=== PATIENT | female | born 1960 | race Caucasian/White ===

== ENCOUNTER 2018-12-30 16:37 | Observation (INO) ==
--- NOTE | 2018-12-30 16:44 | Emergency Department Note ---
Disposition Clinical Impression: Chest pain Disposition: Admitted As Inpatient Condition: Fair Time of Disposition: 18:16 Chest Pain HPI - General Chief Complaint: ED Chest Pain Stated Complaint: chest pain Time Seen by Provider: 12/30/18 16:43 Source: patient, family Mode of arrival: ambulatory Limitations: no limitations Vital Signs Reviewed: Yes Nursing Notes Reviewed: Yes - History of Present Illness HPI Narrative: 58-year-old female past medical history of hypertension, thyroid disease, former smoker, stage III emphysema following currently with [facility] presenting for one day of 8 out of 10 substernal chest tightness radiating to her back. Patient states that she has had some shortness of breath with this but states that is no different than her normal emphysema. The patient has no other concerns or complaints at this time however she states that her father had a heart attack in his mid 50s near her current age. Patient has no other concerns or complaints at this time. Upon my initial evaluation, my general impression is that the patient is awake, alert, oriented, engaged to conversation and answering questions appropriately. There are no overt lateralizing signs, the patient is in no acute distress; their skin appears to be normal in color, they are not pale, not cyanotic, and not diaphoretic, they are sitting up in hospital bed interacting appropriately with environment. Pt complaint: chest pain Onset (ago): day(s) Duration: constant Onset: during rest Severity: severe Severity scale (1-10): 8 Quality: tightness, heaviness Pain Radiation: back - Related Data Home Medications Medication Instructions Recorded Confirmed Omeprazole [PriLOSEC] 20 mg PO DAILY 11/23/15 12/30/18 Albuterol Sulfate [Ventolin Hfa] 2 puff IH Q6H PRN 12/30/18 12/30/18 Cyanocobalamin/Folic Acid [B-12 1 tab SL DAILY 12/30/18 12/30/18 1,000 Mcg Sub Tablet] FLUoxetine HCl [Sarafem] 20 mg PO DAILY 12/30/18 12/30/18 Levothyroxine [Synthroid] 88 mcg PO 0630 12/30/18 12/30/18 Montelukast [Singulair] 10 mg PO DAILY 12/30/18 12/30/18 Multivitamin [Daily Multiple 1 tab PO DAILY 12/30/18 12/30/18 Vitamin] Olmesartan/Hydrochlorothiazide 1 tab PO DAILY 12/30/18 12/30/18 [Olmesartan-Hctz 20-12.5 mg Tab] Allergies Allergy/AdvReac Type Severity Reaction Status Date / Time budesonide [From Symbicort] AdvReac Dizziness Verified 12/30/18 18:40 Formoterol [From Symbicort] AdvReac Dizziness Verified 12/30/18 18:40 hydrocodone [From Vicodin] AdvReac Vomiting Verified 11/23/15 08:04 hydromorphone [From Dilaudid] AdvReac Vomiting Verified 12/30/18 18:01 Review of Systems: *See History of Present Illness for more detail Constitutional: Admits: Chills. Denies: fever Cardiovascular: Admits: chest pain Respiratory: Denies: dyspnea, cough, hemoptysis Gastrointestinal: Denies: abdominal pain, nausea, vomiting, diarrhea, const ipation, hematemesis, melena, hematochezia Genitourinary: Denies: hematuria Musculoskeletal: Denies: back pain, neck pain Neurological: Denies: headache, weakness, lightheadedness/dizziness, numbness, paresthesias, difficulty with ambulation. Endocrine: Denies: fatigue All systems ED: reviewed and negative except as stated. Review of Systems: As Per HPI Chest Pain PMH - Past Medical History Medical history: Reports: GERD, thyroid disease Surgical history: Reports: appendectomy, cholecystectomy, hysterectomy Psychiatric history: Reports: anxiety, depression - Social History Smoking Status: Former smoker Alcohol use: Reports: none Drug use: Reports: none Physical Exam Constitutional: No acute distress, [id number], engaged to conversation, speech is fluid, answers questions appropriately Neuro: GCS 15, no overt focal neurological deficits Head: Atraumatic, normocephalic Eyes: Pupils equal, round and reactive to light, no scleral icterus, no conjunctival injection Neck: Trachea midline without deviation. Anterior neck is supple without swelling. *Chest: Symmetric chest wall rise *Heart: Cardiac rhythm and rate are regular with S1 and S2 , no S3 or S4 appreciated, no murmurs, gallops, rubs, or clicks. *Lungs: Lungs are clear to auscultation bilaterally, without accessory muscle use or prolonged expiratory phase. No wheezes, rhonchi or stridor appreciated. Abdomen: Abdomen is flat, soft to palpation, normal bowel sounds. No abdominal bruit auscultated. Non-distended, non-rigid, no organomegaly, no ascites appreciated. No pulsatile mass, no tenderness or guarding to palpation in all four quadrants, no rebound Extremities: Normal capillary refill without evidence of pedal edema, joint swelling or erythema. Pulses/motor intact in all 4 extremities. Psychiatric exam: Patient displays a normal affect and mood for the environment. No overt signs of hallucination. Integumentary: warm, dry, intact, normal color. No rash, cyanosis, diaphoresis, erythema, or pallor - General Limitations: no limitations General appearance: alert, in no apparent distress Course Vital Signs Temperature 98.0 F 12/30/18 16:37 Pulse Rate 88 12/30/18 16:37 Respiratory Rate 16 12/30/18 16:37 Blood Pressure 158/86 12/30/18 16:37 O2 Sat by Pulse Oximetry 98 12/30/18 16:37 Temperature 98.0 F 12/30/18 16:43 Pulse Rate 86 12/30/18 18:14 Respiratory Rate 16 12/30/18 18:14 Blood Pressure 125/87 12/30/18 18:14 O2 Sat by Pulse Oximetry 97 12/30/18 18:14 Oxygen Delivery Oxygen Delivery Room Air Chest Pain - MDM Narrative Medical decision making narrative: The patients EKG, imaging, and laboratory results show no acute pathology . Ev aluation results were discussed with the patient and their family member(s) at bedside. Patient was given time to ask questions and state concerns. The patient states that they have had significant relief of their symptoms with our management here in the ED. The patient will be admitted to the hospitalist medicine service for further evaluation and management of chest pain for ACS rule out . The patient verbalizes their understanding and agreement with this plan and is hemodynamically stable at the time of admission. - Lab Data Lab results reviewed: Yes I reviewed the patient's lab results. Result diagrams: 12/31/18 00:33 12/31/18 00:33 Lab Results 12/30/18 12/30/18 12/30/18 Range/Units 16:48 16:48 16:48 WBC 6.7 (4.3-11.1) K/mcL RBC 4.20 (3.82-4.97) M/mcL Hgb 12.9 (11.5-15.4) g/dL Hct 38.9 (35.3-44.9) % MCV 92.6 (83.0-100.0) fL MCH 30.7 (28.0-33.3) pg MCHC 33.2 (31.6-35.5) g/dL RDW 12.7 (11.5-14.5) % Plt Count 235 (140-400) K/mcL MPV 9.9 (9.4-12.4) fL Immature Gran % 0.3 (0-4) % Seg Neutrophils % 57.3 % Lymphocytes % 29.5 % Monocytes % 9.9 % Eosinophils % 2.1 % Basophils % 0.9 % Neutrophils # 3.8 (1.6-8.9) K/mcL Lymphocytes # 2.0 (0.6-4.6) K/mcL Monocytes # 0.7 (0.0-1.3) K/mcL Eosinophils # 0.1 (0.0-0.6) K/mcL Basophils # 0.1 (0.0-0.2) K/mcL Sodium 138 (136-145) mEq/L Potassium 3.7 (3.5-5.1) mEq/L Chloride 103 (98-107) mEq/L Carbon Dioxide 23 (23-29) mEq/L BUN 15 (6-20) mg/dL Creatinine 0.70 (0.60-1.20) mg/dL Est GFR ( Amer) > 60 (> 60) Est GFR (Non-Af Amer) > 60 (> 60) BUN/Creatinine Ratio 21 (6-26) Glucose 118 H (70-105) mg/dL Calculated Osmolality 288 (280-300) Calcium 9.1 (8.6-10.3) mg/dL Troponin I < 0.03 (< 0.04) ng/mL B-Natriuretic Peptide 41 (Less than 100) pg/mL Procalcitonin (0.00-0.15) ng/mL TSH 0.763 (0.340-5.600) mcIU/mL 12/30/18 Range/Units 16:48 WBC (4.3-11.1) K/mcL RBC (3.82-4.97) M/mcL Hgb (11.5-15.4) g/dL Hct (35.3-44.9) % MCV (83.0-100.0) fL MCH (28.0-33.3) pg MCHC (31.6-35.5) g/dL RDW (11.5-14.5) % Plt Count (140-400) K/mcL MPV (9.4-12.4) fL Immature Gran % (0-4) % Seg Neutrophils % % Lymphocytes % % Monocytes % % Eosinophils % % Basophils % % Neutrophils # (1.6-8.9) K/mcL Lymphocytes # (0.6-4.6) K/mcL Monocytes # (0.0-1.3) K/mcL Eosinophils # (0.0-0.6) K/mcL Basophils # (0.0-0.2) K/mcL Sodium (136-145) mEq/L Potassium (3.5-5.1) mEq/L Chloride (98-107) mEq/L Carbon Dioxide (23-29) mEq/L BUN (6-20) mg/dL Creatinine (0.60-1.20) mg/dL Est GFR ( Amer) (> 60) Est GFR (Non-Af Amer) (> 60) BUN/Creatinine Ratio (6-26) Glucose (70-105) mg/dL Calculated Osmolality (280-300) Calcium (8.6-10.3) mg/dL Troponin I (< 0.04) ng/mL B-Natriuretic Peptide (Less than 100) pg/mL Procalcitonin < 0.02 (0.00-0.15) ng/mL TSH (0.340-5.600) mcIU/mL - Radiology Data Radiology results reviewed: Yes I reviewed the patient's radiology results. Chest X-Ray 12/30/18 16:48 IMPRESSION: No acute abnormality. D/ / 12/30/2018 17:05:49 Kostas Chavez MD / david Interpreting Provider: Kostas Chavez MD - EKG Data EKG attestation: Yes I reviewed and interpreted this EKG. EKG results narrative: The patients EKG shows a sinus rhythm at a computer analyzed rate of 84 beats per minute, AL interval of 147 milliseconds, a QRS duration of 94 milliseconds, a QT/QTc interval of 382 / 452 milliseconds respectively. There are no s ignificant ST segment elevations, depressions, pathologic Q waves, abnormal T- wave inversions, nor any other signs of acute ischemic change. This EKG that was performed today is generally consistent in morphology with prior EKG that was performed on 02/18/2010. Heart Score - Score History: Moderately Suspicious EKG: Normal Age: 45-65 Risk Factors: Equal/Greater than 3 risk factor or history of atherosclerotic disease Troponin: Less than normal limit HEART Score Total: 4 Attestation Statement - Attestation Attestation: I, Mendoza Felix, examined this patient and my medical decision-making was reviewed with the PROCESS SUPERVISOR/PA/Advanced Practice Nurse/Resident Physician. I agree with the documented findings, disposition and treatment plan as described except to the extent set forth below. 58-year-old female presents emergency Department with concerns of substernal chest pain. Patient states the pain is an aching but does radiate to her back. No history of aortic dissection. Patient has a history of previous cardiac disease. She also is followed for emphysema. Patient is a prior smoker and has a history of hypertension. Patient is awake alert and answering questions appropriately emergency department. Initial troponin was negative. EKG did not show evidence of STEMI.I reviewed the EKG with the resident and agree with the interpretation. Chest x-ray did not show widened mediastinum. Blood pressures are equal and within normal limits bilaterally. I think it is less likely to be aortic dissection. Patient will be admitted to the hospitalist for further care and evaluation of acute chest pain rule out ACS.
[2018-12-30] MEDS ORDERED: Aspirin 81 MG TAB.CHEW PO STA (17:01)
[2018-12-30 17:03] LABS: Basophils # 0.1 K/mcL (0.0-0.2); Basophils % 0.9 %; Eosinophils # 0.1 K/mcL (0.0-0.6); Eosinophils % 2.1 %; Hematocrit 38.9 % (35.3-44.9); Hemoglobin 12.9 g/dL (11.5-15.4); Immature Granulocytes % 0.3 % (0-4); Lymphocytes % 29.5 %; Mean Corpuscular HGB Conc 33.2 g/dL (31.6-35.5); Mean Corpuscular Hemoglobin 30.7 pg (28.0-33.3); Mean Corpuscular Volume 92.6 fL (83.0-100.0); Mean Platelet Volume 9.9 fL (9.4-12.4); Monocytes # 0.7 K/mcL (0.0-1.3); Monocytes % 9.9 %; Neutrophils # 3.8 K/mcL (1.6-8.9); Platelet Count 235 K/mcL (140-400); Red Cell Distribution Width 12.7 % (11.5-14.5); Segmented Neutrophils % 57.3 %; White Blood Count 6.7 K/mcL (4.3-11.1)
[2018-12-30] MEDS: Nitroglycerin 0.4 MG TAB.SUBL SL PRN ×3 (17:59→21:27)
[2018-12-30 18:00] LABS: Troponin I < 0.03 ng/mL (< 0.04)
[2018-12-30] MEDS ORDERED: GI Cocktail 40 ML EACH PO ONE (18:02)
[2018-12-30 18:12] LABS: BUN/Creatinine Ratio 21 (6-26); Blood Urea Nitrogen 15 mg/dL (6-20); Calcium 9.1 mg/dL (8.6-10.3); Carbon Dioxide 23 mEq/L (23-29); Chloride 103 mEq/L (98-107); Glucose 118 mg/dL (70-105); Osmolality,Calculated 288 (280-300); Potassium 3.7 mEq/L (3.5-5.1); Sodium 138 mEq/L (136-145); eGFR For African Americans > 60 (> 60); eGFR For Non-African Americans > 60 (> 60)
[2018-12-30] MEDS ORDERED: MOM Conc 10 ML UD.LIQ PO PRN (18:23)
[2018-12-30] MEDS ORDERED: Acetaminophen 325 MG TABLET PO PRN (18:23)
[2018-12-30] MEDS ORDERED: Naloxone 0.4 MG/ML INJ IVP PRN (18:23)
[2018-12-30] MEDS ORDERED: Mag Hydrox/Al Hydrox/Simeth 30 ML UDC PO PRN (18:23)
[2018-12-30] MEDS ORDERED: Ondansetron 4 MG/2 ML VIAL IVP PRN (18:23)
[2018-12-30] MEDS ORDERED: Ipratropium/Albuterol Neb 3 ML IH PRN (18:29)
--- NOTE | 2018-12-30 18:33 | Internal Med History&Physical ---
Date of Encounter: 12/30/18 Time of Encounter: 18:20 Internal Medicine - H&P: HPI Chief complaint: chest pain Admitted From: Emergency Dept Plans for Post Hospital Care: Home History of present illness: Ms. Kimbrough is a 58 year old female with hx of HTN and emphysema presented to ED with L side chest pain. She is being placed in observation. Ms Kimbrough has been feeling L side chest pain intermittently over the last couple of days per her . It was resolving spontaneously. This AM the pain returned and has not resolved. She was able to go to the store and walk around but the pain persisted. No diaphoresis. No dyspnea. Some coughing earlier today. Some discomfort in back. No pleuritic pain. At this time she has received nitroglycerin and pain is being to resolve. Past Med Surg Social Fam HX - Past Medical History Medical history: asthma, GERD, thyroid disease Additional medical history: bowel irregularity Psychiatric history: anxiety, depression - Past Surgical History Surgical History: appendectomy, cholecystectomy, hysterectomy - Social History Smoking Status: Former smoker Smokeless Tobacco Status: Yes Alcohol use: occasionally Drug use: none - Family History Father Hx Family Cardiac Disorders: Yes (heart disease) Internal Medicine - H&P: Meds Omeprazole [PriLOSEC] 20 mg PO DAILY 11/23/15 [History] Albuterol Sulfate [Ventolin Hfa] 2 puff IH Q6H PRN 12/30/18 [History] Cyanocobalamin/Folic Acid [B-12 1,000 Mcg Sub Tablet] 1 tab SL DAILY 12/30/18 [History] FLUoxetine HCl [Sarafem] 20 mg PO DAILY 12/30/18 [History] Levothyroxine [Synthroid] 88 mcg PO 0630 12/30/18 [History] Montelukast [Singulair] 10 mg PO DAILY 12/30/18 [History] Multivitamin [Daily Multiple Vitamin] 1 tab PO DAILY 12/30/18 [History] Olmesartan/Hydrochlorothiazide [Olmesartan-Hctz 20-12.5 mg Tab] 1 tab PO DAILY 12/30/18 [History] Allergy/AdvReac Type Severity Reaction Status Date / Time hydrocodone [From Vicodin] AdvReac Vomiting Verified 11/23/15 08:04 hydromorphone [From Dilaudid] AdvReac Vomiting Verified 12/30/18 18:01 All Systems PM: A 10-system review of systems was performed and is negative for pertinent findings except as documented above in the HPI. - Constitutional Constitutional: no fatigue, no malaise - EENT Eyes: no change in vision, no loss of vision Ears: no decreased hearing Nose, mouth and throat: no dry mouth, no mouth pain, no sinus pain - Cardiovascular Cardiovascular ROS IM: chest pain, no diaphoresis, no dyspnea, no orthopnea, no palpitations, no paroxysmal nocturnal dyspnea - Respiratory Respiratory: cough, no wheezing - Gastrointestinal Gastrointestinal: no abdominal pain, no diarrhea, no nausea, no vomiting - Genitourinary Genitourinary: no difficulty urinating, no urinary frequency - Musculoskeletal Musculoskeletal ROS IM: no arthralgias - Integumentary Integumentary IM: no non-healing lesions - Neurological Neurological ROS: no confusion, no numbness - Endocrine Endocrine IM: no excessive sweating - Hematologic/Lymphatic Hematologic/Lymphatic: no easy bleeding - Allergic/Immunologic Allergic/Immunologic: no seasonal rhinorrhea - Constitutional Vitals: Temp Pulse Resp BP Pulse Ox 98.0 F 86 16 125/87 97 12/30/18 16:43 12/30/18 18:14 12/30/18 18:14 12/30/18 18:14 12/30/18 18:14 General appearance: Present: A&O X 3, pleasant, answers questions appropriately Exam: See below - Head Head exam: Present: atraumatic, normocephalic - Eye Eye exam: Present: conjuntiva pink - ENT ENT exam: Present: normal exam - Neck Neck exam general surgery: Present: normal inspection, supple. Absent: nuchal rigidity - Respiratory Respiratory exam: Present: decreased breath sounds. Absent: rales, rhonchi, wheezes Additional comments: increased thoracic kyphosis - Cardiovascular Cardiovascular exam: Present: RRR. Absent: systolic murmur, tachycardia - GI/Abdominal GI/Abdominal exam: Present: normal bowel sounds, soft. Absent: mass, tenderness - Extremities Exam Extremities exam: Present: warm. Absent: tenderness Additional comments: Pulses equal - Neurological Exam Neurological exam: Present: alert, oriented X3, no focal deficits - Skin Skin exam: Present: dry, warm. Absent: rash Internal Med - H&P Results - Labs CBC & Chem 7: 12/30/18 16:48 12/30/18 16:48 Labs: Short CBC 12/30/18 Range/Units 16:48 WBC 6.7 (4.3-11.1) K/mcL Hgb 12.9 (11.5-15.4) g/dL Hct 38.9 (35.3-44.9) % Plt Count 235 (140-400) K/mcL Neutrophils # 3.8 (1.6-8.9) K/mcL BMP 12/30/18 16:48 Sodium 138 Potassium 3.7 Chloride 103 Carbon Dioxide 23 BUN 15 Creatinine 0.70 Glucose 118 H Calcium 9.1 Cardiac Enzymes 12/30/18 Range/Units 16:48 Troponin I < 0.03 (< 0.04) ng/mL - Impressions ITS Impressions Chest X-Ray 12/30/18 16:48 IMPRESSION: No acute abnormality. D/ / 12/30/2018 17:05:49 Kostas Chavez MD / david Interpreting Provider: Kostas Chavez MD - Assessment and Plan (1) Chest pain Status: Suspected Assessment and plan: Pt presented to ED with intermittent chest pain over last couple days increasing today. EKG is normal. Place in observation. Serial troponin. Echo. Stress test in AM. Nitro PRN. ASA. Statin. Qualifiers: Chest pain type: chest pain due to myocardial ischemia Qualified Code(s): I20.0 - Unstable angina (2) Emphysema lung Status: Chronic Assessment and plan: PRN duonebs Qualifiers: Emphysema type: unspecified Qualified Code(s): J43.9 - Emphysema, unspecified (3) Hypertension Status: Chronic Assessment and plan: Continue home meds. Qualifiers: Hypertension type: essential hypertension Qualified Code(s): I10 - Essential (primary) hypertension (4) Hypothyroid Status: Chronic Assessment and plan: Continue home meds. Qualifiers: Hypothyroidism type: acquired Qualified Code(s): E03.9 - Hypothyroidism, unspecified - Time Spent With Patient Total time spent is greater than 50% in coordination of care (as documented) at patient's floor/unit and/or counseling patient:
[2018-12-30 18:47] LABS: Thyroid Stimulating Hormone 0.763 mcIU/mL (0.340-5.600)
[2018-12-30] MEDS ORDERED: traMADol 50 MG TABLET PO ONE (22:00)
[2018-12-31 01:34] LABS: Hematocrit 34.2 % (35.3-44.9); Hemoglobin 11.7 g/dL (11.5-15.4); Mean Corpuscular HGB Conc 34.2 g/dL (31.6-35.5); Mean Corpuscular Hemoglobin 31.5 pg (28.0-33.3); Mean Corpuscular Volume 91.9 fL (83.0-100.0); Mean Platelet Volume 10.1 fL (9.4-12.4); Platelet Count 210 K/mcL (140-400); Red Blood Count 3.72 M/mcL (3.82-4.97); Red Cell Distribution Width 12.8 % (11.5-14.5); White Blood Count 5.9 K/mcL (4.3-11.1)
[2018-12-31 01:41] LABS: Prothrombin Time 10.9 Seconds (9.4-12.1)
[2018-12-31 01:52] LABS: BUN/Creatinine Ratio 25 (6-26); Blood Urea Nitrogen 17 mg/dL (6-20); Calcium 8.9 mg/dL (8.6-10.3); Carbon Dioxide 27 mEq/L (23-29); Chloride 104 mEq/L (98-107); Chol/HDL Ratio 3.5 (0-4.9); Glucose 102 mg/dL (70-105); Magnesium 2.2 mg/dL (1.6-2.6); Osmolality,Calculated 288 (280-300); Potassium 3.4 mEq/L (3.5-5.1); Sodium 138 mEq/L (136-145); eGFR For African Americans > 60 (> 60); eGFR For Non-African Americans > 60 (> 60)
[2018-12-31] MEDS ORDERED: *HR* Heparin 5,000 UNIT/ML VIAL SQ SCH (06:00)
[2018-12-31] MEDS ORDERED: Regadenoson 0.4 MG/5 ML SYRINGE IVP ONE (06:30)
[2018-12-31] MEDS ORDERED: Losartan/HCTZ 50-12.5 TABLET PO SCH (09:00)
[2018-12-31] MEDS ORDERED: FLUoxetine 20 MG CAPSULE PO SCH (09:00)
[2018-12-31] MEDS ORDERED: Aspirin Enteric Coated 81 MG Tablet PO SCH (09:00)
--- NOTE | 2018-12-31 11:26 | Discharge Summary ---
- NOTES TO OUTPATIENT PROVIDER Notes to Outpatient Provider: f/u with PCP in one week. Date of Encounter: 12/31/18 Time of Encounter: 11:17 - Discharge Diagnosis (1) Chest pain Priority: Primary Status: Suspected Qualifiers: Chest pain type: chest pain due to myocardial ischemia Qualified Code(s): I20.0 - Unstable angina (2) Emphysema lung Priority: Secondary Status: Chronic Qualifiers: Emphysema type: unspecified Qualified Code(s): J43.9 - Emphysema, unspecified (3) Hypertension Priority: Secondary Status: Chronic Qualifiers: Hypertension type: essential hypertension Qualified Code(s): I10 - Essential (primary) hypertension (4) Hypothyroid Priority: Secondary Status: Chronic Qualifiers: Hypothyroidism type: acquired Qualified Code(s): E03.9 - Hypothyroidism, unspecified Hospital course: Ms. Kimbrough is a 58 year old female with hx of HTN, recently dx COPD/emphysema and former smoker pt presented to ED with L side chest pain. Pt stated she has been having intermittent CP, located left chest wall, radiating to her left lateral side under the Rt breast and back to scapular region. Initially it felt sharp pain , later she was pressure type pain when she lie down. She denied any SOB. She was admitted in the hospital and placed her on tele. Her serial troponin were negative. She does not have any acute ischemic changes on EKG. Her 2D Echo showed preserved LVEF and mild left ventricular diastolic dysfunction. Her D- Dimer was negative. Since pt is high risk for ACS she did go for nuclear stress test which came back as negative for ischemia/infarction. Will d/c her home in stable condition today. - Time Spent with Patient Total time spent providing and/or coordinating discharge services: - Discharge Medications Prescriptions: New Aspirin Enteric Coated [Aspirin EC] 81 mg PO DAILY #30 tablet. Continued Omeprazole [PriLOSEC] 20 mg PO DAILY Montelukast [Singulair] 10 mg PO DAILY Albuterol Sulfate [Ventolin Hfa] 2 puff IH Q6H PRN PRN Reason: Shortness Of Breath FLUoxetine HCl [Sarafem] 20 mg PO DAILY Olmesartan/Hydrochlorothiazide [Olmesartan-Hctz 20-12.5 mg Tab] 1 tab PO DAILY Cyanocobalamin/Folic Acid [B-12 1,000 Mcg Sub Tablet] 1 tab SL DAILY Levothyroxine [Synthroid] 88 mcg PO 0630 Multivitamin [Daily Multiple Vitamin] 1 tab PO DAILY Home Medications: Omeprazole [PriLOSEC] 20 mg PO DAILY 11/23/15 [History] Albuterol Sulfate [Ventolin Hfa] 2 puff IH Q6H PRN 12/30/18 [History] Cyanocobalamin/Folic Acid [B-12 1,000 Mcg Sub Tablet] 1 tab SL DAILY 12/30/18 [History] FLUoxetine HCl [Sarafem] 20 mg PO DAILY 12/30/18 [History] Levothyroxine [Synthroid] 88 mcg PO 0630 12/30/18 [History] Montelukast [Singulair] 10 mg PO DAILY 12/30/18 [History] Multivitamin [Daily Multiple Vitamin] 1 tab PO DAILY 12/30/18 [History] Olmesartan/Hydrochlorothiazide [Olmesartan-Hctz 20-12.5 mg Tab] 1 tab PO DAILY 12/30/18 [History] Aspirin Enteric Coated [Aspirin EC] 81 mg PO DAILY #30 tablet. 12/31/18 [Rx] Allergies/Adverse Reactions: Allergy/AdvReac Type Severity Reaction Status Date / Time budesonide [From Symbicort] AdvReac Dizziness Verified 12/30/18 18:40 Formoterol [From Symbicort] AdvReac Dizziness Verified 12/30/18 18:40 hydrocodone [From Vicodin] AdvReac Vomiting Verified 11/23/15 08:04 hydromorphone [From Dilaudid] AdvReac Vomiting Verified 12/30/18 18:01 Date of admission: 12/30/18 20:13 Primary care physician: Karl Bishop - Constitutional Vitals: Temp Pulse Resp BP Pulse Ox 97.5 F L 62 16 126/77 98 12/31/18 09:56 12/31/18 09:56 12/31/18 09:56 12/31/18 09:56 12/31/18 09:56 General appearance: Present: A&O X 3, pleasant, answers questions appropriately Exam: Gen: Alert, awake, Oriented to time,place and person Chest: Diminished breath sounds B/L, No wheezing, No crackles, No rales Heart: S1S2+ RRR No murmurs Abd: Soft, NT, BS +, No organomegaly Ext: No edema, pulses are palpable, No calf tenderness Neuro : No acute focal neuro deficits noticed Skin: No rash. - Patient Status Disposition: Home, Self-Care Condition: Good Overall status at discharge: patient is back to baseline - Discharge Instructions Follow Up With: Karl Bishop [Primary Care Provider] - 01/04/19 10:00 am - Diet and Activity Activity: increase activity as tolerated Diet: low salt diet
[2018-12-31 12:19] VITALS: BP 101/64
--- NOTE | 2018-12-31 17:40 | Electrocardiograph Report ---
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
--- NOTE | 2019-01-01 07:34 | Electrocardiograph Report ---
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
== END 2018-12-31 14:00 | disposition home or self-care (01) ==
LOC: EMEROOARM 16:37 → 3BNU 16:37 → SUATTDRO 20:13 → 3BNU 20:29
PROVIDERS: ADMIT Internal Medicine; ATTEND Family Medicine

== ENCOUNTER 2020-03-29 18:26 | Inpatient (IN) ==
[2020-03-29] MEDS ORDERED: 0.9 % Sodium Chloride 1,000 ML IVC ONE (19:02)
[2020-03-29 19:12] LABS: Basophils % 0.3 %; Hematocrit 38.5 % (35.3-44.9); Hemoglobin 12.7 g/dL (11.5-15.4); Lymphocytes # 0.8 K/mcL (0.6-4.6); Lymphocytes % 22.9 %; Mean Corpuscular Hemoglobin 30.5 pg (28.0-33.3); Mean Corpuscular Volume 92.3 fL (83.0-100.0); Mean Platelet Volume 10.2 fL (9.4-12.4); Monocytes # 0.3 K/mcL (0.0-1.3); Monocytes % 9.7 %; Neutrophils # 2.3 K/mcL (1.6-8.9); Platelet Count 157 K/mcL (140-400); Red Blood Count 4.17 M/mcL (3.82-4.97); Red Cell Distribution Width 13.5 % (11.5-14.5); Segmented Neutrophils % 67.1 %; White Blood Count 3.4 K/mcL (4.3-11.1)
[2020-03-29 19:18] LABS: INR 1.1; Prothrombin Time 12.6 Seconds (9.4-12.1)
[2020-03-29 19:21] LABS: Activated Partial Thrombo Time 34.3 Seconds (26.0-36.0)
[2020-03-29 19:35] LABS: Alanine Aminotransferase 38 Units/L (7-52); Albumin 4.2 g/dL (3.5-5.7); Albumin/Globulin Ratio 1.3 (1.1-2.2); Alkaline Phosphatase 62 Units/L (34-104); Aspartate Amino Transferase 42 Units/L (13-39); BUN/Creatinine Ratio 15 (6-26); Bilirubin,Direct 0.1 mg/dL (0.0-0.2); Bilirubin,Indirect 0.2 mg/dL (0.0-1.0); Bilirubin,Total 0.3 mg/dL (0.3-1.0); Blood Urea Nitrogen 12 mg/dL (6-20); Calcium 8.6 mg/dL (8.6-10.3); Carbon Dioxide 27 mEq/L (23-29); Chloride 98 mEq/L (98-107); Globulin 3.3 g/dL (2.4-3.5); Glucose 104 mg/dL (70-105); Magnesium 1.8 mg/dL (1.6-2.6); Osmolality,Calculated 278 (280-300); Potassium 3.4 mEq/L (3.5-5.1); Sodium 134 mEq/L (136-145); Total Protein 7.5 g/dL (6.4-8.9); Troponin I < 0.03 ng/mL (< 0.04); eGFR For African Americans > 60 (> 60); eGFR For Non-African Americans > 60 (> 60)
[2020-03-29] MEDS ORDERED: Azithromycin 250 MG TABLET PO ONE (19:48)
[2020-03-29] MEDS ORDERED: Dexamethasone 4 MG/ML VIAL IVP ONE (19:59)
[2020-03-29] MEDS ORDERED: Furosemide 40 MG/4 ML VIAL IVP ONE (20:12)
[2020-03-29] MEDS ORDERED: Naloxone 0.4 MG/ML INJ IVP PRN (20:48)
[2020-03-29] MEDS ORDERED: Ondansetron 4 MG/2 ML VIAL IVP PRN (20:48)
[2020-03-29] MEDS ORDERED: Acetaminophen 325 MG TABLET PO PRN (20:48)
[2020-03-30 05:39] LABS: INR 1.1; Prothrombin Time 12.7 Seconds (9.4-12.1)
[2020-03-30 05:40] LABS: Hematocrit 38.4 % (35.3-44.9); Hemoglobin 12.8 g/dL (11.5-15.4); Immature Granulocytes % 0.7 % (0-4); Lymphocytes # 0.4 K/mcL (0.6-4.6); Lymphocytes % 13.5 %; Mean Corpuscular HGB Conc 33.3 g/dL (31.6-35.5); Mean Corpuscular Hemoglobin 30.3 pg (28.0-33.3); Mean Platelet Volume 10.5 fL (9.4-12.4); Monocytes # 0.1 K/mcL (0.0-1.3); Monocytes % 3.8 %; Neutrophils # 2.4 K/mcL (1.6-8.9); Platelet Count 140 K/mcL (140-400); Red Blood Count 4.22 M/mcL (3.82-4.97); Red Cell Distribution Width 13.4 % (11.5-14.5); White Blood Count 2.9 K/mcL (4.3-11.1)
[2020-03-30 05:53] LABS: Alanine Aminotransferase 34 Units/L (7-52); Albumin 4.1 g/dL (3.5-5.7); Albumin/Globulin Ratio 1.3 (1.1-2.2); Alkaline Phosphatase 63 Units/L (34-104); Aspartate Amino Transferase 38 Units/L (13-39); BUN/Creatinine Ratio 18 (6-26); Bilirubin,Total 0.3 mg/dL (0.3-1.0); Blood Urea Nitrogen 13 mg/dL (6-20); Calcium 8.5 mg/dL (8.6-10.3); Carbon Dioxide 25 mEq/L (23-29); Chloride 100 mEq/L (98-107); Globulin 3.1 g/dL (2.4-3.5); Glucose 187 mg/dL (70-105); Magnesium 1.9 mg/dL (1.6-2.6); Osmolality,Calculated 283 (280-300); Potassium 3.6 mEq/L (3.5-5.1); Sodium 134 mEq/L (136-145); Total Protein 7.2 g/dL (6.4-8.9); eGFR For African Americans > 60 (> 60); eGFR For Non-African Americans > 60 (> 60)
[2020-03-30] MEDS: Aspirin Enteric Coated 81 MG Tablet PO SCH (08:50)
[2020-03-30] MEDS ORDERED: Dexamethasone 4 MG/ML VIAL IVP SCH (09:00)
[2020-03-30] MEDS ORDERED: Furosemide 40 MG TABLET PO SCH (09:00)
[2020-03-30] MEDS ORDERED: 0.9 % Sodium Chloride 250 ML ONE (15:37)
[2020-03-31 04:40] LABS: Hematocrit 36.7 % (35.3-44.9); Hemoglobin 11.9 g/dL (11.5-15.4); Mean Corpuscular HGB Conc 32.4 g/dL (31.6-35.5); Mean Corpuscular Volume 92.4 fL (83.0-100.0); Mean Platelet Volume 10.5 fL (9.4-12.4); Platelet Count 153 K/mcL (140-400); Red Blood Count 3.97 M/mcL (3.82-4.97); Red Cell Distribution Width 13.6 % (11.5-14.5)
[2020-03-31 04:42] LABS: White Blood Count 7.1 K/mcL (4.3-11.1)
[2020-03-31 04:45] LABS: INR 1.2; Prothrombin Time 13.6 Seconds (9.4-12.1)
[2020-03-31 05:04] LABS: Alanine Aminotransferase 27 Units/L (7-52); Albumin 3.7 g/dL (3.5-5.7); Albumin/Globulin Ratio 1.2 (1.1-2.2); Alkaline Phosphatase 52 Units/L (34-104); Aspartate Amino Transferase 31 Units/L (13-39); BUN/Creatinine Ratio 22 (6-26); Bilirubin,Direct 0.1 mg/dL (0.0-0.2); Bilirubin,Indirect 0.2 mg/dL (0.0-1.0); Bilirubin,Total 0.3 mg/dL (0.3-1.0); Blood Urea Nitrogen 17 mg/dL (6-20); C-Reactive Protein 14 mg/L (Less than 10); Calcium 8.2 mg/dL (8.6-10.3); Carbon Dioxide 28 mEq/L (23-29); Chloride 97 mEq/L (98-107); Globulin 3.2 g/dL (2.4-3.5); Glucose 95 mg/dL (70-105); Lactate Dehydrogenase 205 Units/L (140-271); Magnesium 1.9 mg/dL (1.6-2.6); Osmolality,Calculated 275 (280-300); Potassium 3.7 mEq/L (3.5-5.1); Sodium 132 mEq/L (136-145); Total Protein 6.9 g/dL (6.4-8.9); eGFR For African Americans > 60 (> 60); eGFR For Non-African Americans > 60 (> 60)
[2020-03-31 05:20] LABS: Ferritin 419 ng/mL (10-120)
[2020-03-31] MEDS ORDERED: 0.9 % Sodium Chloride 500 ML IVC ONE (05:50)
[2020-03-31] MEDS: *HR* Enoxaparin 40 MG/0.4 ML SYRINGE SQ SCH (06:11)
[2020-03-31] MEDS ORDERED: Tiotropium 18 MCG inhalation IH SCH (07:00)
[2020-03-31] MEDS ORDERED: Dexamethasone 4 MG/ML VIAL IVP SCH (09:00)
[2020-03-31] MEDS ORDERED: Furosemide 40 MG/4 ML VIAL IVP SCH ×2 (09:00→09:15)
[2020-03-31] MEDS ORDERED: Furosemide 20 MG TABLET PO SCH (09:00)
[2020-03-31] MEDS: FLUoxetine 20 MG CAPSULE PO SCH (09:20)
[2020-03-31] MEDS: Dexamethasone Sodium Phos/PF 10 MG/ML VIAL IVP SCH (09:20)
[2020-03-31] MEDS: Aspirin Enteric Coated 81 MG Tablet PO SCH (09:20)
[2020-03-31] MEDS: Ipratropium 1 PUFF INHALER IH SCH ×5 (09:59→23:49)
[2020-03-31] MEDS ORDERED: Ipratropium 1 PUFF INHALER IH SCH (10:00)
[2020-03-31] MEDS: Furosemide 40 MG/4 ML VIAL IVP SCH ×2 (11:52→12:11)
[2020-03-31] MEDS ORDERED: Remdesivir 200 MG in 0.9 % Sodium Chloride 210 ML IVPB ONE (15:00)
[2020-04-01] MEDS: Ipratropium 1 PUFF INHALER IH SCH ×6 (03:17→23:35)
[2020-04-01] MEDS: *HR* Enoxaparin 40 MG/0.4 ML SYRINGE SQ SCH (05:39)
[2020-04-01 06:56] LABS: Hematocrit 35.8 % (35.3-44.9); Hemoglobin 11.8 g/dL (11.5-15.4); Mean Corpuscular Hemoglobin 30.6 pg (28.0-33.3); Mean Corpuscular Volume 92.7 fL (83.0-100.0); Mean Platelet Volume 10.7 fL (9.4-12.4); Platelet Count 152 K/mcL (140-400); Red Blood Count 3.86 M/mcL (3.82-4.97); White Blood Count 4.8 K/mcL (4.3-11.1)
[2020-04-01 06:57] LABS: INR 1.1; Prothrombin Time 12.9 Seconds (9.4-12.1)
[2020-04-01 07:25] LABS: Magnesium 2.2 mg/dL (1.6-2.6); Phosphorous 3.3 mg/dL (2.7-4.5)
[2020-04-01] MEDS: Dexamethasone Sodium Phos/PF 10 MG/ML VIAL IVP SCH (08:38)
[2020-04-01] MEDS: Aspirin Enteric Coated 81 MG Tablet PO SCH (08:39)
[2020-04-01] MEDS: FLUoxetine 20 MG CAPSULE PO SCH (08:39)
[2020-04-01] MEDS: Furosemide 40 MG/4 ML VIAL IVP SCH (10:08)
[2020-04-01] MEDS ORDERED: Remdesivir 100 MG in 0.9 % Sodium Chloride 230 ML IVPB SCH (15:00)
[2020-04-01 15:34] LABS: Alanine Aminotransferase 28 Units/L (7-52); Albumin 4.1 g/dL (3.5-5.7); Albumin/Globulin Ratio 1.2 (1.1-2.2); Alkaline Phosphatase 52 Units/L (34-104); Aspartate Amino Transferase 30 Units/L (13-39); BUN/Creatinine Ratio 29 (6-26); Bilirubin,Total 0.3 mg/dL (0.3-1.0); Blood Urea Nitrogen 20 mg/dL (6-20); Calcium 8.5 mg/dL (8.6-10.3); Carbon Dioxide 26 mEq/L (23-29); Chloride 98 mEq/L (98-107); Globulin 3.4 g/dL (2.4-3.5); Glucose 176 mg/dL (70-105); Osmolality,Calculated 285 (280-300); Potassium 3.8 mEq/L (3.5-5.1); Sodium 134 mEq/L (136-145); Total Protein 7.5 g/dL (6.4-8.9); eGFR For African Americans > 60 (> 60); eGFR For Non-African Americans > 60 (> 60)
[2020-04-01] MEDS ORDERED: 0.9 % Sodium Chloride 250 ML ONE (18:05)
[2020-04-02 02:25] LABS: Hematocrit 34.7 % (35.3-44.9); Hemoglobin 11.3 g/dL (11.5-15.4); Mean Corpuscular HGB Conc 32.6 g/dL (31.6-35.5); Mean Corpuscular Hemoglobin 29.6 pg (28.0-33.3); Mean Corpuscular Volume 90.8 fL (83.0-100.0); Mean Platelet Volume 10.6 fL (9.4-12.4); Platelet Count 167 K/mcL (140-400); Red Blood Count 3.82 M/mcL (3.82-4.97); Red Cell Distribution Width 13.6 % (11.5-14.5); White Blood Count 5.2 K/mcL (4.3-11.1)
[2020-04-02 02:32] LABS: INR 1.1; Prothrombin Time 12.9 Seconds (9.4-12.1)
[2020-04-02 02:41] LABS: Alanine Aminotransferase 23 Units/L (7-52); Albumin 3.8 g/dL (3.5-5.7); Albumin/Globulin Ratio 1.3 (1.1-2.2); Alkaline Phosphatase 50 Units/L (34-104); Aspartate Amino Transferase 26 Units/L (13-39); BUN/Creatinine Ratio 36 (6-26); Bilirubin,Total 0.3 mg/dL (0.3-1.0); Blood Urea Nitrogen 21 mg/dL (6-20); Calcium 8.6 mg/dL (8.6-10.3); Carbon Dioxide 26 mEq/L (23-29); Chloride 100 mEq/L (98-107); Glucose 143 mg/dL (70-105); Osmolality,Calculated 287 (280-300); Potassium 3.7 mEq/L (3.5-5.1); Sodium 136 mEq/L (136-145); Total Protein 6.8 g/dL (6.4-8.9); eGFR For African Americans > 60 (> 60); eGFR For Non-African Americans > 60 (> 60)
[2020-04-02 02:42] LABS: Magnesium 2.1 mg/dL (1.6-2.6); Phosphorous 2.4 mg/dL (2.7-4.5)
[2020-04-02] MEDS: Ipratropium 1 PUFF INHALER IH SCH ×6 (03:28→23:57)
[2020-04-02] MEDS: Dexamethasone Sodium Phos/PF 10 MG/ML VIAL IVP SCH (06:43)
[2020-04-02] MEDS: Furosemide 40 MG/4 ML VIAL IVP SCH ×3 (06:43→16:26)
[2020-04-02] MEDS: Aspirin Enteric Coated 81 MG Tablet PO SCH (06:43)
[2020-04-02] MEDS: *HR* Enoxaparin 40 MG/0.4 ML SYRINGE SQ SCH (06:44)
[2020-04-02] MEDS: FLUoxetine 20 MG CAPSULE PO SCH (07:03)
[2020-04-02] MEDS ORDERED: 0.9 % Sodium Chloride 250 ML IVC SCH (07:30)
[2020-04-02] MEDS ORDERED: Remdesivir 100 MG in 0.9 % Sodium Chloride 230 ML IVPB SCH (15:00)
[2020-04-03] MEDS: Ipratropium 1 PUFF INHALER IH SCH ×6 (03:49→23:22)
[2020-04-03] MEDS: *HR* Enoxaparin 40 MG/0.4 ML SYRINGE SQ SCH (05:17)
[2020-04-03] MEDS: FLUoxetine 20 MG CAPSULE PO SCH (10:03)
[2020-04-03] MEDS: Aspirin Enteric Coated 81 MG Tablet PO SCH (10:04)
[2020-04-03] MEDS: Furosemide 40 MG/4 ML VIAL IVP SCH ×2 (10:06→17:33)
[2020-04-03] MEDS: Dexamethasone Sodium Phos/PF 10 MG/ML VIAL IVP SCH (10:08)
[2020-04-03 11:49] LABS: Hematocrit 39.4 % (35.3-44.9); Hemoglobin 12.9 g/dL (11.5-15.4); Mean Corpuscular HGB Conc 32.7 g/dL (31.6-35.5); Mean Corpuscular Hemoglobin 30.8 pg (28.0-33.3); Mean Platelet Volume 10.7 fL (9.4-12.4); Platelet Count 243 K/mcL (140-400); Red Blood Count 4.19 M/mcL (3.82-4.97); Red Cell Distribution Width 13.2 % (11.5-14.5); White Blood Count 6.4 K/mcL (4.3-11.1)
[2020-04-03 12:22] LABS: Alanine Aminotransferase 45 Units/L (7-52); Albumin 3.8 g/dL (3.5-5.7); Albumin/Globulin Ratio 1.2 (1.1-2.2); Alkaline Phosphatase 53 Units/L (34-104); Aspartate Amino Transferase 38 Units/L (13-39); BUN/Creatinine Ratio 32 (6-26); Bilirubin,Total 0.5 mg/dL (0.3-1.0); Blood Urea Nitrogen 23 mg/dL (6-20); Calcium 8.5 mg/dL (8.6-10.3); Carbon Dioxide 30 mEq/L (23-29); Chloride 96 mEq/L (98-107); Globulin 3.1 g/dL (2.4-3.5); Glucose 111 mg/dL (70-105); Osmolality,Calculated 286 (280-300); Sodium 136 mEq/L (136-145); Total Protein 6.9 g/dL (6.4-8.9); eGFR For African Americans > 60 (> 60); eGFR For Non-African Americans > 60 (> 60)
[2020-04-03] MEDS: Remdesivir 100 MG in 0.9 % Sodium Chloride 230 ML IVPB SCH (15:35)
[2020-04-04] MEDS: Ipratropium 1 PUFF INHALER IH SCH ×6 (03:41→23:23)
[2020-04-04 04:49] LABS: Hematocrit 39.3 % (35.3-44.9); Hemoglobin 12.8 g/dL (11.5-15.4); Mean Corpuscular HGB Conc 32.6 g/dL (31.6-35.5); Mean Corpuscular Hemoglobin 29.8 pg (28.0-33.3); Mean Corpuscular Volume 91.4 fL (83.0-100.0); Mean Platelet Volume 10.6 fL (9.4-12.4); Platelet Count 259 K/mcL (140-400); Red Cell Distribution Width 13.1 % (11.5-14.5)
[2020-04-04] MEDS: *HR* Enoxaparin 40 MG/0.4 ML SYRINGE SQ SCH (04:49)
[2020-04-04 05:05] LABS: Alanine Aminotransferase 68 Units/L (7-52); Albumin 3.8 g/dL (3.5-5.7); Albumin/Globulin Ratio 1.2 (1.1-2.2); Alkaline Phosphatase 46 Units/L (34-104); Aspartate Amino Transferase 42 Units/L (13-39); BUN/Creatinine Ratio 45 (6-26); Bilirubin,Total 0.5 mg/dL (0.3-1.0); Blood Urea Nitrogen 25 mg/dL (6-20); Calcium 8.5 mg/dL (8.6-10.3); Carbon Dioxide 27 mEq/L (23-29); Chloride 100 mEq/L (98-107); Globulin 3.2 g/dL (2.4-3.5); Glucose 124 mg/dL (70-105); Osmolality,Calculated 286 (280-300); Potassium 4.1 mEq/L (3.5-5.1); Sodium 135 mEq/L (136-145); eGFR For African Americans > 60 (> 60); eGFR For Non-African Americans > 60 (> 60)
[2020-04-04] MEDS: Furosemide 20 MG TABLET PO SCH (08:21)
[2020-04-04] MEDS: Aspirin Enteric Coated 81 MG Tablet PO SCH (08:21)
[2020-04-04] MEDS: FLUoxetine 20 MG CAPSULE PO SCH (08:22)
[2020-04-04] MEDS: Dexamethasone Sodium Phos/PF 10 MG/ML VIAL IVP SCH (08:22)
[2020-04-04] MEDS: Remdesivir 100 MG in 0.9 % Sodium Chloride 230 ML IVPB SCH (15:59)
[2020-04-04] MEDS: cefTRIAXone 2,000 MG in Water for inj. (sterile) 20 ML IVP SCH (16:53)
[2020-04-04] MEDS: Azithromycin 500 MG in 0.9 % Sodium Chloride 250 ML IVPB SCH (16:53)
[2020-04-05] MEDS: Ipratropium 1 PUFF INHALER IH SCH ×6 (03:31→23:10)
[2020-04-05] MEDS: *HR* Enoxaparin 40 MG/0.4 ML SYRINGE SQ SCH (05:37)
[2020-04-05 05:42] LABS: Hematocrit 37.9 % (35.3-44.9); Hemoglobin 12.2 g/dL (11.5-15.4); Mean Corpuscular HGB Conc 32.2 g/dL (31.6-35.5); Mean Corpuscular Hemoglobin 29.7 pg (28.0-33.3); Mean Corpuscular Volume 92.2 fL (83.0-100.0); Mean Platelet Volume 9.9 fL (9.4-12.4); Platelet Count 249 K/mcL (140-400); Red Blood Count 4.11 M/mcL (3.82-4.97); Red Cell Distribution Width 13.2 % (11.5-14.5); White Blood Count 6.9 K/mcL (4.3-11.1)
[2020-04-05 05:56] LABS: Alanine Aminotransferase 42 Units/L (7-52); Albumin 3.5 g/dL (3.5-5.7); Albumin/Globulin Ratio 1.3 (1.1-2.2); Alkaline Phosphatase 45 Units/L (34-104); Aspartate Amino Transferase 21 Units/L (13-39); BUN/Creatinine Ratio 32 (6-26); Bilirubin,Total 0.4 mg/dL (0.3-1.0); Blood Urea Nitrogen 22 mg/dL (6-20); Calcium 8.2 mg/dL (8.6-10.3); Carbon Dioxide 26 mEq/L (23-29); Chloride 102 mEq/L (98-107); Globulin 2.8 g/dL (2.4-3.5); Glucose 77 mg/dL (70-105); Osmolality,Calculated 282 (280-300); Potassium 3.5 mEq/L (3.5-5.1); Sodium 135 mEq/L (136-145); Total Protein 6.3 g/dL (6.4-8.9); eGFR For African Americans > 60 (> 60); eGFR For Non-African Americans > 60 (> 60)
[2020-04-05] MEDS: FLUoxetine 20 MG CAPSULE PO SCH (07:24)
[2020-04-05] MEDS: Aspirin Enteric Coated 81 MG Tablet PO SCH (07:25)
[2020-04-05] MEDS: Dexamethasone Sodium Phos/PF 10 MG/ML VIAL IVP SCH (07:25)
[2020-04-05] MEDS: Furosemide 20 MG TABLET PO SCH (07:25)
[2020-04-05] MEDS: cefTRIAXone 2,000 MG in Water for inj. (sterile) 20 ML IVP SCH (17:47)
[2020-04-05] MEDS: Azithromycin 500 MG in 0.9 % Sodium Chloride 250 ML IVPB SCH (17:48)
[2020-04-06] MEDS: Ipratropium 1 PUFF INHALER IH SCH ×6 (03:29→23:48)
[2020-04-06] MEDS: *HR* Enoxaparin 40 MG/0.4 ML SYRINGE SQ SCH (05:23)
[2020-04-06 05:50] LABS: Hematocrit 39.3 % (35.3-44.9); Hemoglobin 12.9 g/dL (11.5-15.4); Mean Corpuscular HGB Conc 32.8 g/dL (31.6-35.5); Mean Corpuscular Hemoglobin 30.3 pg (28.0-33.3); Mean Corpuscular Volume 92.3 fL (83.0-100.0); Mean Platelet Volume 9.9 fL (9.4-12.4); Platelet Count 275 K/mcL (140-400); Red Blood Count 4.26 M/mcL (3.82-4.97); Red Cell Distribution Width 13.2 % (11.5-14.5); White Blood Count 9.9 K/mcL (4.3-11.1)
[2020-04-06 06:09] LABS: BUN/Creatinine Ratio 34 (6-26); Blood Urea Nitrogen 23 mg/dL (6-20); Calcium 8.8 mg/dL (8.6-10.3); Carbon Dioxide 28 mEq/L (23-29); Chloride 100 mEq/L (98-107); Glucose 114 mg/dL (70-105); Magnesium 2.1 mg/dL (1.6-2.6); Osmolality,Calculated 283 (280-300); Sodium 134 mEq/L (136-145); eGFR For African Americans > 60 (> 60); eGFR For Non-African Americans > 60 (> 60)
[2020-04-06] MEDS: Furosemide 20 MG TABLET PO SCH (09:34)
[2020-04-06] MEDS: FLUoxetine 20 MG CAPSULE PO SCH (09:34)
[2020-04-06] MEDS: Aspirin Enteric Coated 81 MG Tablet PO SCH (09:34)
[2020-04-06] MEDS: Dexamethasone Sodium Phos/PF 10 MG/ML VIAL IVP SCH (09:35)
[2020-04-06] MEDS: cefTRIAXone 2,000 MG in Water for inj. (sterile) 20 ML IVP SCH (16:17)
[2020-04-06] MEDS: Azithromycin 500 MG in 0.9 % Sodium Chloride 250 ML IVPB SCH (16:17)
[2020-04-07 01:16] LABS: Hematocrit 38.3 % (35.3-44.9); Hemoglobin 12.4 g/dL (11.5-15.4); Mean Corpuscular HGB Conc 32.4 g/dL (31.6-35.5); Mean Corpuscular Hemoglobin 29.6 pg (28.0-33.3); Mean Corpuscular Volume 91.4 fL (83.0-100.0); Mean Platelet Volume 9.7 fL (9.4-12.4); Platelet Count 296 K/mcL (140-400); Red Blood Count 4.19 M/mcL (3.82-4.97); Red Cell Distribution Width 13.1 % (11.5-14.5); White Blood Count 12.9 K/mcL (4.3-11.1)
[2020-04-07 01:34] LABS: BUN/Creatinine Ratio 33 (6-26); Blood Urea Nitrogen 20 mg/dL (6-20); Calcium 8.6 mg/dL (8.6-10.3); Carbon Dioxide 24 mEq/L (23-29); Chloride 101 mEq/L (98-107); Glucose 129 mg/dL (70-105); Osmolality,Calculated 278 (280-300); Potassium 3.8 mEq/L (3.5-5.1); Sodium 132 mEq/L (136-145); eGFR For African Americans > 60 (> 60); eGFR For Non-African Americans > 60 (> 60)
[2020-04-07] MEDS: Ipratropium 1 PUFF INHALER IH SCH ×3 (04:13→11:05)
[2020-04-07] MEDS: *HR* Enoxaparin 40 MG/0.4 ML SYRINGE SQ SCH (05:22)
[2020-04-07] MEDS: Furosemide 20 MG TABLET PO SCH (07:33)
[2020-04-07] MEDS: Aspirin Enteric Coated 81 MG Tablet PO SCH (07:33)
[2020-04-07] MEDS: FLUoxetine 20 MG CAPSULE PO SCH (07:33)
[2020-04-07] MEDS: Dexamethasone Sodium Phos/PF 10 MG/ML VIAL IVP SCH (07:33)
[2020-04-07 09:28] VITALS: BP 137/84
[2020-04-07] MEDS ORDERED: Azithromycin 250 MG TABLET PO SCH (16:00)
== END 2020-04-07 12:25 | disposition home or self-care (01) | DRG 177 ==
LOC: 2NENU 18:26 → EMEROOARM 18:26 → SUATTDRO 20:48 → 2NENU 22:08
PROVIDERS: ADMIT Family Medicine; ATTEND Internal Medicine